=== PATIENT | female | born 1955 | race Caucasian/White ===

== ENCOUNTER 2020-11-22 14:06 | Emergency (ER) | payer OTHER ==
[~2020-11-22 14:06] MED LIST: ACETAMINOPHEN500 MG PO; ALDACTONE50 MG PO; CALCIUM PLUS M1 EAC1 PO; CARNITOR330 MG PO; CEFDINIR300 M1 PO; CEFDINIR300 MG PO; DOK100 MG PO; INDERAL LA160 MG PO; JANUVIA50 MG PO; LACTINEX1 EACH PO; LACTULOSE10 G/15 ML PO; LACTULOSE20 GM/30 M PO; LASIX20 MG PO; MAG-OXIDE 400M400 MG PO; MORPHINE SULFAT15 MG PO; OXY-IR 5MG5 MG PO; PANTOPRAZOLE SO40 MG PO; PAXIL20 MG PO; PERCOCET 5-3251 EACH PO; PHENERGAN25 M1 PO; REQUIP1 MG PO; VANCOMYCIN HCL1 GM PO; XIFAXAN550 MG PO; ZINC50 MG PO; ZOFRAN4 MG SL
[2020-11-22 15:26] LABS: BASOPHIL 0.3 % (0-2); EOSINOPHIL 1.2 % (0-7); HCT 45.1 % (37.0-47.0); MCH 30.7 pg (25.0-31.0); MCHC 33.3 g/dL (32.0-36.0); MCV 92.4 fL (78.0-100.0); MONOCYTE 9.7 % (0-12); MPV 11.5 fL (6.0-9.5); NEUTROPHIL 78.5 % (41-80); NRBC 0; RBC 4.88 M/uL (4.20-5.40); RDW 14.7 % (11.5-14.0); WBC 3.3 K/uL (4.0-10.5)
[2020-11-22 15:32] LABS: PLT 73 K/uL (150-400)
[2020-11-22 15:42] LABS: ALBUMIN 3.5 g/dL (3.4-5.0); BILIRUBIN - TOTAL 4.2 mg/dL (0.2-1.0); CREATININE 0.58 mg/dL (0.51-0.95); GLOBULIN (CALCULATION) 3.3 g/dL; POTASSIUM 4.5 mmol/L (3.5-5.1); TOTAL PROTEIN 6.8 g/dL (6.4-8.2)
[2020-11-22 15:52] LABS: AMYLASE 58 U/L (25-115); LIPASE 220 U/L (73-393)
[2020-11-22 19:02] LABS: BILIRUBIN NEGATIVE (NEGATIVE); BLOOD NEGATIVE Ery/uL (NEGATIVE); CLARITY CLEAR (CLEAR); COLOR YELLOW (YELLOW); GLUCOSE (U) 2+ mg/dL (NORMAL); LEUKOCYTES NEGATIVE Leu/uL (NEGATIVE); NITRITE NEGATIVE (NEGATIVE); PROTEIN TRACE (LOW) mg/dL (NEGATIVE); SPECIFIC GRAVITY >=1.030 (1.001-1.030); UROBILINOGEN 0.2 mg/dL (0.2-1.0)
[2020-11-22 19:10] LABS: BACTERIA TRACE; MUCOUS LARGE; SQUAMOUS EPITHELIAL CELLS RARE; URINARY RBC RARE; URINARY WBC RARE
[2020-11-22 19:59] LABS: AMPHETAMINES NEGATIVE (NEGATIVE); BARBITURATES NEGATIVE (NEGATIVE); ECSTASY (MDMA) NEGATIVE (NEGATIVE); MARIJUANA (THC) NEGATIVE (NEGATIVE); METHADONE NEGATIVE (NEGATIVE); OPIATES NEGATIVE (NEGATIVE); OXYCODONE NEGATIVE (NEGATIVE)
== END 2020-11-23 00:15 | disposition other institution (70) ==
LOC: FER 14:06
PROVIDERS: Nurse Practitioner Family
DX: G93.41 Metabolic encephalopathy (principal); I10 Essential (primary) hypertension; R29.703 NIHSS score 3; Z87.891 Personal history of nicotine dependence
CPT/HCPCS: 36415; 70450; 71045; 72125; 80053; 80305; 81001; 82009; 82140; 82150; 82550; 83690; 84443; 85025; 86593; G0480; J7030

== ENCOUNTER 2021-10-25 12:57 | Inpatient (IN) | payer MEDICARE ==
[~2021-10-25] VITALS: Ht 167.6 cm; Wt 73.9 kg
[2021-10-25 14:13] LABS: AMPHETAMINES NEGATIVE (NEGATIVE); BARBITURATES NEGATIVE (NEGATIVE); ECSTASY (MDMA) NEGATIVE (NEGATIVE); MARIJUANA (THC) NEGATIVE (NEGATIVE); METHADONE NEGATIVE (NEGATIVE); OPIATES NEGATIVE (NEGATIVE); OXYCODONE NEGATIVE (NEGATIVE)
[2021-10-25 14:14] LABS: BILIRUBIN NEGATIVE (NEGATIVE); BLOOD NEGATIVE Ery/uL (NEGATIVE); CLARITY CLEAR (CLEAR); COLOR YELLOW (YELLOW); GLUCOSE (U) 3+ mg/dL (NORMAL); LEUKOCYTES NEGATIVE Leu/uL (NEGATIVE); NITRITE NEGATIVE (NEGATIVE); PROTEIN TRACE (LOW) mg/dL (NEGATIVE); SPECIFIC GRAVITY 1.025 (1.001-1.030)
[2021-10-25 14:26] LABS: BACTERIA TRACE; MUCOUS MODERATE
[2021-10-25 14:27] LABS: URIC ACID CRYSTALS MODERATE
[2021-10-25 14:33] LABS: BASOPHIL 0.3 % (0-2); EOSINOPHIL 0.3 % (0-7); HCT 45.7 % (37.0-47.0); LYMPHOCYTE 7.9 % (15-48); MCH 33.8 pg (25.0-31.0); MCV 96.6 fL (78.0-100.0); MONOCYTE 14.4 % (0-12); MPV 10.4 fL (6.0-9.5); NEUTROPHIL 76.6 % (41-80); NRBC 0; PLT 48 K/uL (150-400); RBC 4.73 M/uL (4.20-5.40); RDW 14.3 % (11.5-14.0); WBC 3.7 K/uL (4.0-10.5)
[2021-10-25 15:21] LABS: ALBUMIN 3.7 g/dL (3.4-5.0); BILIRUBIN - TOTAL 2.6 mg/dL (0.2-1.0); BUN/CREAT RATIO (CALC) 59.6 RATIO; CREATININE 0.47 mg/dL (0.51-0.95); GLOBULIN (CALCULATION) 3.3 g/dL; POTASSIUM 3.8 mmol/L (3.5-5.1)
[2021-10-25] MEDS ORDERED: LACTULOSE10 G/15 ML PO (22:18)
[2021-10-25] MEDS ORDERED: ATORVASTATIN CA20 MG PO (22:19)
[2021-10-25] MEDS ORDERED: ZINC50 M2 PO (22:19)
[2021-10-25] MEDS ORDERED: XIFAXAN550 M1 PO (22:20)
[2021-10-25] MEDS ORDERED: PAXIL20 MG PO (22:21)
[2021-10-25] MEDS ORDERED: POTASSIUM20 MEQ/11 PO (22:21)
[2021-10-25] MEDS ORDERED: MAG-OXIDE 400M400 MG PO (22:22)
[2021-10-25] MEDS ORDERED: ALDACTONE50 MG PO (22:23)
[2021-10-25] MEDS ORDERED: FUROSEMIDE20 MG PO (22:24)
[2021-10-26 06:48] LABS: BASOPHIL 0.6 % (0-2); EOSINOPHIL 2.4 % (0-7); HCT 32.1 % (37.0-47.0); LYMPHOCYTE 24.8 % (15-48); MCH 34.2 pg (25.0-31.0); MONOCYTE 12.1 % (0-12); MPV 10.9 fL (6.0-9.5); NEUTROPHIL 60.1 % (41-80); NRBC 0; RBC 3.19 M/uL (4.20-5.40); RDW 14.9 % (11.5-14.0)
[2021-10-26 06:51] LABS: WBC 1.7 K/uL (4.0-10.5)
[2021-10-26 07:01] LABS: HGB 10.9 g/dl (12.5-16.0)
[2021-10-26 07:10] LABS: BILIRUBIN - TOTAL 2.7 mg/dL (0.2-1.0); BUN/CREAT RATIO (CALC) 43.1 RATIO; CREATININE 0.51 mg/dL (0.51-0.95); GLOBULIN (CALCULATION) 2.1 g/dL; MAGNESIUM 2.1 mg/dL (1.8-2.4); POTASSIUM 3.9 mmol/L (3.5-5.1); TOTAL PROTEIN 5.1 g/dL (6.4-8.2)
[2021-10-26 07:11] LABS: MCV 100.6 fL (78.0-100.0)
[2021-10-26 07:19] LABS: PLT 32 K/uL (150-400)
[2021-10-26 16:14] LABS: PHOSPHORUS 3.2 mg/dL (2.6-4.7)
[2021-10-27 06:26] LABS: BASOPHIL 1.2 % (0-2); EOSINOPHIL 3.1 % (0-7); LYMPHOCYTE 20.9 % (15-48); MCH 33.7 pg (25.0-31.0); MCHC 34.2 g/dL (32.0-36.0); MCV 98.4 fL (78.0-100.0); MONOCYTE 13.5 % (0-12); MPV 11.5 fL (6.0-9.5); NEUTROPHIL 61.3 % (41-80); NRBC 0; RBC 3.86 M/uL (4.20-5.40); RDW 14.6 % (11.5-14.0)
[2021-10-27 06:43] LABS: BUN/CREAT RATIO (CALC) 23.5 RATIO; CREATININE 0.51 mg/dL (0.51-0.95); POTASSIUM 3.5 mmol/L (3.5-5.1)
[2021-10-27 07:33] LABS: PLT 33 K/uL (150-400); WBC 1.6 K/uL (4.0-10.5)
--- NOTE | 2021-10-28 01:13 | NUR ---
PT REFUSING FLUIDS AT THIS TIME. STATES NOT GETTING ANY SLEEP DUE TO PEEING ALL THE TIME FROM FLUIDS. WILL LET MD KNOW.
[2021-10-28 06:56] LABS: BASOPHIL 0.6 % (0-2); EOSINOPHIL 3.6 % (0-7); HCT 38.8 % (37.0-47.0); HGB 13.5 g/dl (12.5-16.0); LYMPHOCYTE 14.5 % (15-48); MCH 34.2 pg (25.0-31.0); MCHC 34.8 g/dL (32.0-36.0); MCV 98.2 fL (78.0-100.0); MONOCYTE 13.3 % (0-12); MPV 10.3 fL (6.0-9.5); NRBC 0; PLT 38 K/uL (150-400); RBC 3.95 M/uL (4.20-5.40)
[2021-10-28 07:11] LABS: CREATININE 0.5 mg/dL (0.51-0.95); POTASSIUM 3.7 mmol/L (3.5-5.1)
[2021-10-28 07:25] LABS: WBC 1.7 K/uL (4.0-10.5)
--- NOTE | 2021-10-28 14:34 | NUR ---
PT IS CURRENT WITH [facility] . NOTIFIED ISAEL W/JAYY OF PT. D/C HOME THIS DATE. ALSO, REQUESTED THAT [facility] SET PT UP WITH [facility]. ISAEL ADVISED THAT THEY WILL GET THE PT SET UP WITH THE [facility]. ADVISED MANISHA FELTON OF ABOVE INFORMATION.
== END 2021-10-28 14:33 | disposition home health service (06) | DRG 441 ==
LOC: FER 12:57 → FMS 20:55
PROVIDERS: Emergency Medicine; Internal Medicine; Nurse Practitioner; ADMIT Allergy & Immunology Allergy
DX: K72.00 Acute and subacute hepatic failure without coma (principal); R65.11 Systemic inflammatory response syndrome (SIRS) of non-infectious origin with acute organ dysfunction; M62.82 Rhabdomyolysis; D61.818 Other pancytopenia; E87.0 Hyperosmolality and hypernatremia; Z20.822 Contact with and (suspected) exposure to COVID-19; K74.60 Unspecified cirrhosis of liver; I10 Essential (primary) hypertension; E11.9 Type 2 diabetes mellitus without complications; M19.90 Unspecified osteoarthritis, unspecified site; F32.A Depression, unspecified; G25.81 Restless legs syndrome; Z90.710 Acquired absence of both cervix and uterus; Z90.49 Acquired absence of other specified parts of digestive tract; Z98.890 Other specified postprocedural states; Z85.3 Personal history of malignant neoplasm of breast; Z85.05 Personal history of malignant neoplasm of liver; Z87.891 Personal history of nicotine dependence; Z88.5 Allergy status to narcotic agent
CPT/HCPCS: 36415; 70450; 71045; 72125; 72128; 72131; 72170; 80048; 80053; 80305; 81001; 82140; 82550; 82553; 83605; 83735; 83874; 84100; 84132; 84295; 84484; 85025; 97162; 97166; 97530; 97530-GP; 97535; G0378; G0480; J1170; J1885; J3480; J7030; U0002

== ENCOUNTER 2021-11-08 06:38 | Emergency (ER) | payer MEDICARE ==
[~2021-11-08 06:38] MED LIST changes: +ATORVASTATIN CA20 MG PO; +FUROSEMIDE20 MG PO; +POTASSIUM20 MEQ/11 PO; +XIFAXAN550 M1 PO; +ZINC50 M2 PO
[2021-11-08 07:48] LABS: BASOPHIL 0.5 % (0-2); EOSINOPHIL 2.5 % (0-7); HGB 14.1 g/dl (12.5-16.0); LYMPHOCYTE 9.9 % (15-48); MCH 34.5 pg (25.0-31.0); MCHC 34.4 g/dL (32.0-36.0); MCV 100.2 fL (78.0-100.0); MONOCYTE 10.9 % (0-12); MPV 10.3 fL (6.0-9.5); NEUTROPHIL 75.7 % (41-80); NRBC 0; RBC 4.09 M/uL (4.20-5.40); RDW 14.8 % (11.5-14.0)
[2021-11-08 08:01] LABS: CORONAVIRUS 2019 SARS-COV-2 NEGATIVE (NEGATIVE); INFLUENZA A NAA NEGATIVE (NEGATIVE)
[2021-11-08 08:18] LABS: ALBUMIN 3.2 g/dL (3.4-5.0); BILIRUBIN - TOTAL 2.7 mg/dL (0.2-1.0); BUN/CREAT RATIO (CALC) 21.4 RATIO; CREATININE 0.56 mg/dL (0.51-0.95); GLOBULIN (CALCULATION) 2.9 g/dL; POTASSIUM 3.5 mmol/L (3.5-5.1); TOTAL PROTEIN 6.1 g/dL (6.4-8.2)
[2021-11-08 08:26] LABS: PLT 47 K/uL (150-400)
== END 2021-11-08 09:24 | disposition home or self-care (01) ==
LOC: FER 06:38
PROVIDERS: Emergency Medicine
DX: R19.7 Diarrhea, unspecified (principal); K72.90 Hepatic failure, unspecified without coma; E11.9 Type 2 diabetes mellitus without complications; Z20.822 Contact with and (suspected) exposure to COVID-19; Z88.5 Allergy status to narcotic agent; Z79.4 Long term (current) use of insulin
CPT/HCPCS: 36415; 74022; 80053; 82140; 83690; 84145; 84484; 85025; J7030; Q0162; U0002

== ENCOUNTER 2021-11-11 04:28 | Inpatient (IN) | payer MEDICARE ==
[~2021-11-11] VITALS: Ht 167.6 cm; Wt 74.4 kg
[2021-11-11 06:17] LABS: BASOPHIL 0.5 % (0-2); EOSINOPHIL 4.2 % (0-7); HCT 37.2 % (37.0-47.0); HGB 12.8 g/dl (12.5-16.0); LYMPHOCYTE 11.2 % (15-48); MCH 34.3 pg (25.0-31.0); MCHC 34.4 g/dL (32.0-36.0); MCV 99.7 fL (78.0-100.0); MONOCYTE 13.1 % (0-12); MPV 11.9 fL (6.0-9.5); NEUTROPHIL 70.5 % (41-80); NRBC 0; PLT 58 K/uL (150-400); RBC 3.73 M/uL (4.20-5.40)
[2021-11-11 06:22] LABS: INR 1.39 (0.9-1.2); PROTHROMBIN TIME 16.4 SECONDS (11.8-13.4); PTT 28.1 SECONDS (24.4-34.7)
[2021-11-11 06:29] LABS: WBC 2.1 K/uL (4.0-10.5)
[2021-11-11 07:06] LABS: ALBUMIN 2.8 g/dL (3.4-5.0); BILIRUBIN - TOTAL 2.8 mg/dL (0.2-1.0); BUN/CREAT RATIO (CALC) 17.6 RATIO; CREATININE 0.51 mg/dL (0.51-0.95); GLOBULIN (CALCULATION) 3.2 g/dL; POTASSIUM 3.2 mmol/L (3.5-5.1)
[2021-11-11 08:20] LABS: BILIRUBIN NEGATIVE (NEGATIVE); BLOOD TRACE-INTACT Ery/uL (NEGATIVE); CLARITY CLEAR (CLEAR); COLOR YELLOW (YELLOW); GLUCOSE (U) NORMAL (NORMAL); LEUKOCYTES NEGATIVE Leu/uL (NEGATIVE); NITRITE NEGATIVE (NEGATIVE); PROTEIN NEGATIVE (NEGATIVE); UROBILINOGEN 0.2 mg/dL (0.2-1.0)
[2021-11-11 08:28] LABS: BACTERIA TRACE; URINARY RBC RARE; URINARY WBC RARE
[2021-11-11] MEDS ORDERED: MAG-OXIDE 400M400 MG PO (10:43)
[2021-11-11] MEDS ORDERED: REQUIP1 MG PO (10:44)
[2021-11-11] MEDS ORDERED: ZINC50 MG PO (10:45)
[2021-11-11] MEDS ORDERED: XIFAXAN550 MG PO (10:46)
[2021-11-11] MEDS ORDERED: TRESIBA100 UNIT/1 SC (10:47)
[2021-11-11] MEDS ORDERED: CARNITOR330 MG PO (10:48)
[2021-11-12 06:56] LABS: EOSINOPHIL 6.9 % (0-7); HCT 36.3 % (37.0-47.0); HGB 12.2 g/dl (12.5-16.0); LYMPHOCYTE 21.6 % (15-48); MCH 33.8 pg (25.0-31.0); MCHC 33.6 g/dL (32.0-36.0); MCV 100.6 fL (78.0-100.0); MONOCYTE 12.7 % (0-12); NEUTROPHIL 57.8 % (41-80); NRBC 0; RBC 3.61 M/uL (4.20-5.40); RDW 14.6 % (11.5-14.0)
[2021-11-12 07:03] LABS: PLT 41 K/uL (150-400)
[2021-11-12 07:16] LABS: ALBUMIN 2.5 g/dL (3.4-5.0); ALKALINE PHOSHATASE 77 U/L (46-116); ALT 46 U/L (14-59); AST 37 U/L (15-37); BILIRUBIN - TOTAL 3.2 mg/dL (0.2-1.0); BUN 5 mg/dL (7-18); BUN/CREAT RATIO (CALC) 8.8 RATIO; C-REACTIVE PROTEIN <0.20 mg/dL (<=0.90); CHLORIDE 108 mmol/L (98-107); CO2 (BICARBONATE) 24 mmol/L (21-32); CREATININE 0.57 mg/dL (0.51-0.95); GLOBULIN (CALCULATION) 2.4 g/dL; GLUCOSE 89 mg/dL (74-106); LIPASE 228 U/L (73-393); MAGNESIUM 1.8 mg/dL (1.8-2.4); PHOSPHORUS 3.3 mg/dL (2.6-4.7); POTASSIUM 3.2 mmol/L (3.5-5.1); TOTAL PROTEIN 4.9 g/dL (6.4-8.2)
[2021-11-13 07:02] LABS: BASOPHIL 0.4 % (0-2); EOSINOPHIL 1.8 % (0-7); HCT 35.4 % (37.0-47.0); HGB 11.9 g/dl (12.5-16.0); LYMPHOCYTE 8.1 % (15-48); MCHC 33.6 g/dL (32.0-36.0); MCV 101.1 fL (78.0-100.0); MONOCYTE 8.1 % (0-12); MPV 10.7 fL (6.0-9.5); NEUTROPHIL 80.9 % (41-80); NRBC 0; RDW 14.5 % (11.5-14.0)
[2021-11-13 07:05] LABS: PLT 42 K/uL (150-400); WBC 2.9 K/uL (4.0-10.5)
[2021-11-13 07:40] LABS: ALBUMIN 2.5 g/dL (3.4-5.0); BILIRUBIN - TOTAL 2.8 mg/dL (0.2-1.0); BUN/CREAT RATIO (CALC) 7.7 RATIO; C-REACTIVE PROTEIN 0.3 mg/dL (<=0.90); CREATININE 0.65 mg/dL (0.51-0.95); GLOBULIN (CALCULATION) 2.4 g/dL; MAGNESIUM 1.7 mg/dL (1.8-2.4); POTASSIUM 3.1 mmol/L (3.5-5.1); TOTAL PROTEIN 4.9 g/dL (6.4-8.2)
[2021-11-14 06:47] LABS: BASOPHIL 0.4 % (0-2); HCT 34.6 % (37.0-47.0); HGB 11.7 g/dl (12.5-16.0); LYMPHOCYTE 14.5 % (15-48); MCH 34.1 pg (25.0-31.0); MCHC 33.8 g/dL (32.0-36.0); MCV 100.9 fL (78.0-100.0); MONOCYTE 8.6 % (0-12); MPV 10.5 fL (6.0-9.5); NEUTROPHIL 73.3 % (41-80); NRBC 0; PLT 33 K/uL (150-400); RBC 3.43 M/uL (4.20-5.40); RDW 14.6 % (11.5-14.0)
[2021-11-14 06:49] LABS: WBC 2.6 K/uL (4.0-10.5)
[2021-11-14 07:10] LABS: ALBUMIN 2.4 g/dL (3.4-5.0); BUN/CREAT RATIO (CALC) 9.7 RATIO; CREATININE 0.62 mg/dL (0.51-0.95); GLOBULIN (CALCULATION) 2.5 g/dL; MAGNESIUM 1.7 mg/dL (1.8-2.4); POTASSIUM 3.6 mmol/L (3.5-5.1); TOTAL PROTEIN 4.9 g/dL (6.4-8.2)
[2021-11-14] MEDS ORDERED: AMOX TR-K CLV1 EAC4 PO (17:02)
[2021-11-14] MEDS ORDERED: LACTINEX1 EACH PO (17:02)
== END 2021-11-14 17:35 | disposition home health service (06) | DRG 392 ==
LOC: FER 04:28 → FMS 08:46
PROVIDERS: Internal Medicine; ADMIT Internal Medicine
PROC: 8E0ZXY6 Isolation (ICD-10-PCS; principal; 2021-11-11)
DX: K52.9 Noninfective gastroenteritis and colitis, unspecified (principal); D84.9 Immunodeficiency, unspecified; K70.31 Alcoholic cirrhosis of liver with ascites; Z20.822 Contact with and (suspected) exposure to COVID-19; K70.11 Alcoholic hepatitis with ascites; E87.6 Hypokalemia; D69.6 Thrombocytopenia, unspecified; E83.42 Hypomagnesemia; E11.9 Type 2 diabetes mellitus without complications; I10 Essential (primary) hypertension; E78.5 Hyperlipidemia, unspecified; F32.A Depression, unspecified; G25.81 Restless legs syndrome; Z85.3 Personal history of malignant neoplasm of breast; Z85.05 Personal history of malignant neoplasm of liver; Z90.710 Acquired absence of both cervix and uterus; Z90.49 Acquired absence of other specified parts of digestive tract; Z98.890 Other specified postprocedural states; Z88.5 Allergy status to narcotic agent; Z88.6 Allergy status to analgesic agent; Z87.891 Personal history of nicotine dependence; Z79.899 Other long term (current) drug therapy
CPT/HCPCS: 36415; 74022; 80053; 81001; 82140; 83605; 83690; 83735; 83880; 84100; 84145; 84484; 85025; 85610; 85730; 86140; 87045; 87046; 87205; 87449; 93005; 97162; 97166; 97530-GP; 97535; J1447; J2543; J3475; J7030; Q0162; U0002

== ENCOUNTER 2022-02-14 08:58 | Inpatient (IN) | payer MEDICARE, OTHER ==
[~2022-02-14] VITALS: Ht 167.6 cm; Wt 74.0 kg
[~2022-02-14 08:58] MED LIST changes: +AMOX TR-K CLV1 EAC4 PO; +TRESIBA100 UNIT/1 SC
[2022-02-14 11:19] LABS: BASOPHIL 1.1 % (0-2); EOSINOPHIL 2.6 % (0-7); HCT 43.5 % (37.0-47.0); HGB 14.8 g/dl (12.5-16.0); LYMPHOCYTE 13.2 % (15-48); MCH 32.5 pg (25.0-31.0); MCV 95.6 fL (78.0-100.0); MONOCYTE 12.2 % (0-12); MPV 11.1 fL (6.0-9.5); NEUTROPHIL 70.9 % (41-80); NRBC 0; RBC 4.55 M/uL (4.20-5.40); RDW 14.3 % (11.5-14.0)
[2022-02-14 11:29] LABS: PLT 52 K/uL (150-400); WBC 1.9 K/uL (4.0-10.5)
[2022-02-14 11:31] LABS: IRON % SATURATION 48.3 %SAT (20-50)
[2022-02-14 11:36] LABS: INR 1.37 (0.9-1.2); PROTHROMBIN TIME 16.2 SECONDS (11.8-13.4); PTT 33.9 SECONDS (24.4-34.7)
[2022-02-14 11:42] LABS: ALBUMIN 3.2 g/dL (3.4-5.0); BUN/CREAT RATIO (CALC) 46.7 RATIO; CREATININE 0.45 mg/dL (0.51-0.95); GLOBULIN (CALCULATION) 3.5 g/dL; POTASSIUM 3.8 mmol/L (3.5-5.1); TOTAL PROTEIN 6.7 g/dL (6.4-8.2)
[2022-02-14 12:00] LABS: BILIRUBIN NEGATIVE (NEGATIVE); BLOOD NEGATIVE Ery/uL (NEGATIVE); CLARITY CLEAR (CLEAR); COLOR YELLOW (YELLOW); GLUCOSE (U) 3+ mg/dL (NORMAL); LEUKOCYTES NEGATIVE Leu/uL (NEGATIVE); NITRITE NEGATIVE (NEGATIVE); PROTEIN NEGATIVE (NEGATIVE)
[2022-02-14 12:02] LABS: LACTIC ACID 1.9 mmol/L (0.4-1.9)
[2022-02-14] MEDS ORDERED: MAG-OXIDE 400M400 MG PO (17:38)
[2022-02-14] MEDS ORDERED: PAXIL20 MG PO (17:40)
[2022-02-14] MEDS ORDERED: LACTULOSE10 G/15 ML PR (17:42)
[2022-02-15 07:26] LABS: BASOPHIL 0.7 % (0-2); EOSINOPHIL 6.2 % (0-7); HCT 39.8 % (37.0-47.0); HGB 13.4 g/dl (12.5-16.0); LYMPHOCYTE 25.5 % (15-48); MCH 32.5 pg (25.0-31.0); MCHC 33.7 g/dL (32.0-36.0); MCV 96.6 fL (78.0-100.0); MONOCYTE 15.2 % (0-12); MPV 10.4 fL (6.0-9.5); NEUTROPHIL 52.4 % (41-80); PLT 49 K/uL (150-400); RBC 4.12 M/uL (4.20-5.40); RDW 14.5 % (11.5-14.0)
[2022-02-15 07:38] LABS: WBC 1.5 K/uL (4.0-10.5)
[2022-02-15 07:41] LABS: MAGNESIUM 2.2 mg/dL (1.8-2.4); PHOSPHORUS 3.8 mg/dL (2.6-4.7)
[2022-02-16 06:57] LABS: BASOPHIL 0.8 % (0-2); EOSINOPHIL 3.2 % (0-7); HGB 13.3 g/dl (12.5-16.0); MCH 32.5 pg (25.0-31.0); MCHC 34.1 g/dL (32.0-36.0); MCV 95.4 fL (78.0-100.0); MONOCYTE 15.3 % (0-12); MPV 10.3 fL (6.0-9.5); NEUTROPHIL 50.9 % (41-80); NRBC 0; PLT 44 K/uL (150-400); RBC 4.09 M/uL (4.20-5.40); RDW 14.1 % (11.5-14.0)
[2022-02-16 07:19] LABS: BUN/CREAT RATIO (CALC) 23.5 RATIO; CREATININE 0.51 mg/dL (0.51-0.95)
[2022-02-16 08:36] LABS: WBC 1.2 K/uL (4.0-10.5)
[2022-02-17 06:46] LABS: BASOPHIL 0.5 % (0-2); EOSINOPHIL 1.6 % (0-7); HGB 13.6 g/dl (12.5-16.0); LYMPHOCYTE 8.5 % (15-48); MCH 32.9 pg (25.0-31.0); MCHC 33.2 g/dL (32.0-36.0); MCV 99.3 fL (78.0-100.0); MONOCYTE 7.1 % (0-12); MPV 11.7 fL (6.0-9.5); NEUTROPHIL 81.8 % (41-80); NRBC 0; RBC 4.13 M/uL (4.20-5.40); RDW 14.6 % (11.5-14.0)
[2022-02-17 07:00] LABS: BUN/CREAT RATIO (CALC) 19.7 RATIO; CREATININE 0.66 mg/dL (0.51-0.95); POTASSIUM 4.9 mmol/L (3.5-5.1)
[2022-02-17 07:02] LABS: WBC 3.6 K/uL (4.0-10.5)
[2022-02-17 07:05] LABS: PLT 38 K/uL (150-400)
[2022-02-17] MEDS ORDERED: AMOX TR-K CLV1 EAC4 PO (15:25)
--- NOTE | 2022-02-17 16:07 | NUR ---
PT IS CURRENT WITH INTREPID. TC TO INTREPID OFFICE AND ADVISED OF PT. D/C HOME THIS DATE.
== END 2022-02-17 15:58 | disposition home health service (06) | DRG 433 ==
LOC: FER 08:58 → FMS 15:28
PROVIDERS: Emergency Medicine; ADMIT Internal Medicine
PROC: 8E0ZXY6 Isolation (ICD-10-PCS; principal; 2022-02-14)
DX: K70.40 Alcoholic hepatic failure without coma (principal); A09 Infectious gastroenteritis and colitis, unspecified; D84.9 Immunodeficiency, unspecified; K76.6 Portal hypertension; K70.31 Alcoholic cirrhosis of liver with ascites; Z20.822 Contact with and (suspected) exposure to COVID-19; D69.6 Thrombocytopenia, unspecified; N83.8 Other noninflammatory disorders of ovary, fallopian tube and broad ligament; R00.1 Bradycardia, unspecified; E11.9 Type 2 diabetes mellitus without complications; I10 Essential (primary) hypertension; G25.81 Restless legs syndrome; F32.A Depression, unspecified; I07.1 Rheumatic tricuspid insufficiency; M19.90 Unspecified osteoarthritis, unspecified site; Z85.05 Personal history of malignant neoplasm of liver; Z90.81 Acquired absence of spleen; Z85.3 Personal history of malignant neoplasm of breast; Z90.710 Acquired absence of both cervix and uterus; Z90.49 Acquired absence of other specified parts of digestive tract; Z87.891 Personal history of nicotine dependence; Z88.5 Allergy status to narcotic agent; Z88.6 Allergy status to analgesic agent; Z79.899 Other long term (current) drug therapy
CPT/HCPCS: 36415; 71260; 80048; 80053; 81003; 82140; 82728; 83540; 83550; 83605; 83735; 83880; 84100; 84145; 84439; 84443; 84484; 85025; 85610; 85730; 87045; 87046; 87205; 87449; 93005; 94010; J0780; J1447; J1650; J1885; J2543; Q9967; U0002

== ENCOUNTER 2022-03-13 23:29 | Day surgery (SDCO) | payer MEDICARE, OTHER ==
[~2022-03-13] VITALS: Ht 167.6 cm; Wt 76.8 kg
[~2022-03-13 23:29] MED LIST changes: +LACTULOSE10 G/15 ML PR
[2022-03-14 00:24] LABS: BASOPHIL 0.7 % (0-2); EOSINOPHIL 2.6 % (0-7); HCT 37.4 % (37.0-47.0); LYMPHOCYTE 19.7 % (15-48); MCH 32.7 pg (25.0-31.0); MCHC 34.8 g/dL (32.0-36.0); MCV 94.2 fL (78.0-100.0); MONOCYTE 18.4 % (0-12); MPV 10.6 fL (6.0-9.5); NEUTROPHIL 58.6 % (41-80); NRBC 0; RBC 3.97 M/uL (4.20-5.40); RDW 14.1 % (11.5-14.0)
[2022-03-14 00:36] LABS: INR 1.46 (0.9-1.2); PROTHROMBIN TIME 17.3 SECONDS (11.9-13.9)
[2022-03-14 00:40] LABS: PLT 32 K/uL (150-400)
[2022-03-14 00:50] LABS: LACTIC ACID 1.1 mmol/L (0.4-1.9)
[2022-03-14 00:52] LABS: BILIRUBIN NEGATIVE (NEGATIVE); BLOOD NEGATIVE Ery/uL (NEGATIVE); CLARITY CLEAR (CLEAR); COLOR YELLOW (YELLOW); GLUCOSE (U) 3+ mg/dL (NORMAL); LEUKOCYTES NEGATIVE Leu/uL (NEGATIVE); NITRITE NEGATIVE (NEGATIVE); PROTEIN NEGATIVE (NEGATIVE)
[2022-03-14 00:54] LABS: AMPHETAMINES NEGATIVE (NEGATIVE); BARBITURATES NEGATIVE (NEGATIVE); ECSTASY (MDMA) NEGATIVE (NEGATIVE); MARIJUANA (THC) NEGATIVE (NEGATIVE); METHADONE NEGATIVE (NEGATIVE); OPIATES NEGATIVE (NEGATIVE); OXYCODONE NEGATIVE (NEGATIVE)
[2022-03-14 00:56] LABS: ACETAMINOPHEN (TYLENOL) < 2.0 ug/mL (10.0-30.0); ALKALINE PHOSHATASE 76 U/L (46-116); ALT 58 U/L (14-59); AST 50 U/L (15-37); BILIRUBIN - TOTAL 2.2 mg/dL (0.2-1.0); BUN 21 mg/dL (7-18); BUN/CREAT RATIO (CALC) 46.7 RATIO; CHLORIDE 102 mmol/L (98-107); CO2 (BICARBONATE) 24 mmol/L (21-32); CREATININE 0.45 mg/dL (0.51-0.95); GLOBULIN (CALCULATION) 2.8 g/dL; GLUCOSE 196 mg/dL (74-106); MAGNESIUM 1.9 mg/dL (1.8-2.4); POTASSIUM 3.4 mmol/L (3.5-5.1); TOTAL PROTEIN 5.8 g/dL (6.4-8.2)
[2022-03-14 00:58] LABS: WBC 1.5 K/uL (4.0-10.5)
[2022-03-14 01:02] LABS: CORONAVIRUS 2019 SARS-COV-2 NEGATIVE (NEGATIVE); INFLUENZA A NAA NEGATIVE (NEGATIVE)
[2022-03-14] MEDS ORDERED: CARNITOR330 MG PO (03:43)
[2022-03-15 07:00] LABS: BASOPHIL 0.5 % (0-2); EOSINOPHIL 4.3 % (0-7); HCT 40.9 % (37.0-47.0); HGB 13.8 g/dl (12.5-16.0); LYMPHOCYTE 15.9 % (15-48); MCH 32.1 pg (25.0-31.0); MCHC 33.7 g/dL (32.0-36.0); MCV 95.1 fL (78.0-100.0); MONOCYTE 13.9 % (0-12); MPV 10.7 fL (6.0-9.5); NEUTROPHIL 64.9 % (41-80); NRBC 0; RDW 14.3 % (11.5-14.0); WBC 2.1 K/uL (4.0-10.5)
[2022-03-15 07:02] LABS: ALBUMIN 2.9 g/dL (3.4-5.0); BILIRUBIN - TOTAL 2.5 mg/dL (0.2-1.0); BUN/CREAT RATIO (CALC) 28.6 RATIO; CREATININE 0.49 mg/dL (0.51-0.95); GLOBULIN (CALCULATION) 2.4 g/dL; POTASSIUM 3.8 mmol/L (3.5-5.1); TOTAL PROTEIN 5.3 g/dL (6.4-8.2)
[2022-03-15 07:33] LABS: PLT 39 K/uL (150-400)
--- NOTE | 2022-03-15 10:22 | NUR ---
03/15/22 Ms. Marcus lives alone. She is followed by [facility]. [facility] was informed of OBS status. Ms. Marcus has a rw, s. seat, and cane. - Ms. 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 - She hopes to move to [place] by Winter to be near her son. She has no other children.
[2022-03-15] MEDS ORDERED: LACTULOSE10 G/15 ML PR (13:46)
== END 2022-03-15 14:34 | disposition home health service (06) ==
LOC: FER 23:29 → FMS 03-14 02:41
PROVIDERS: Internal Medicine; Nurse Practitioner Acute Care; ADMIT Internal Medicine
DX: K72.00 Acute and subacute hepatic failure without coma (principal); E87.1 Hypo-osmolality and hyponatremia; E87.6 Hypokalemia; D72.819 Decreased white blood cell count, unspecified; D69.6 Thrombocytopenia, unspecified; E11.649 Type 2 diabetes mellitus with hypoglycemia without coma; K74.60 Unspecified cirrhosis of liver; D68.9 Coagulation defect, unspecified; I10 Essential (primary) hypertension; J98.59 Other diseases of mediastinum, not elsewhere classified; G25.81 Restless legs syndrome; J98.11 Atelectasis; I49.1 Atrial premature depolarization; E78.5 Hyperlipidemia, unspecified; R94.31 Abnormal electrocardiogram [ECG] [EKG]; N63.0 Unspecified lump in unspecified breast; K52.9 Noninfective gastroenteritis and colitis, unspecified; D50.9 Iron deficiency anemia, unspecified; Z88.6 Allergy status to analgesic agent; Z88.5 Allergy status to narcotic agent; Z20.822 Contact with and (suspected) exposure to COVID-19
CPT/HCPCS: 36415; 70450; 71250; 80053; 80305; 81003; 82140; 83036; 83605; 83735; 83880; 84145; 84484; 85025; 85610; 85730; 87040; 93005; 94010; 94760; 96365; 97162; 97166; 97530-GP; G0378; G0480; J2543; J7030; U0002

== ENCOUNTER 2022-03-17 14:27 | Emergency (ER) | payer MEDICARE, OTHER ==
[2022-03-17 16:39] LABS: BASOPHIL 0.4 % (0-2); EOSINOPHIL 2.1 % (0-7); HCT 35.7 % (37.0-47.0); HGB 12.3 g/dl (12.5-16.0); LYMPHOCYTE 15.8 % (15-48); MCH 32.8 pg (25.0-31.0); MCHC 34.5 g/dL (32.0-36.0); MCV 95.2 fL (78.0-100.0); MONOCYTE 12.4 % (0-12); MPV 11.4 fL (6.0-9.5); NEUTROPHIL 68.9 % (41-80); NRBC 0; RBC 3.75 M/uL (4.20-5.40); RDW 14.3 % (11.5-14.0); WBC 2.3 K/uL (4.0-10.5)
[2022-03-17 16:40] LABS: PLT 44 K/uL (150-400)
[2022-03-17 16:47] LABS: INR 1.41 (0.9-1.2); PROTHROMBIN TIME 16.8 SECONDS (11.9-13.9); PTT 33.6 SECONDS (24.9-34.6)
[2022-03-17 17:02] LABS: ALBUMIN 2.8 g/dL (3.4-5.0); CREATININE 0.5 mg/dL (0.51-0.95); GLOBULIN (CALCULATION) 2.7 g/dL; MAGNESIUM 2.1 mg/dL (1.8-2.4); POTASSIUM 3.4 mmol/L (3.5-5.1); TOTAL PROTEIN 5.5 g/dL (6.4-8.2)
[2022-03-17 20:26] LABS: BILIRUBIN NEGATIVE (NEGATIVE); BLOOD 1+ Ery/uL (NEGATIVE); CLARITY CLEAR (CLEAR); COLOR YELLOW (YELLOW); GLUCOSE (U) TRACE mg/dL (NORMAL); LEUKOCYTES TRACE Leu/uL (NEGATIVE); NITRITE NEGATIVE (NEGATIVE); PROTEIN TRACE (LOW) mg/dL (NEGATIVE)
[2022-03-17 20:38] LABS: BACTERIA 3+; MUCOUS MODERATE; URINARY WBC TNTC
[2022-03-17 20:39] LABS: AMORPHOUS URATES CRYSTALS MODERATE
== END 2022-03-17 21:25 | disposition home or self-care (01) ==
LOC: FER 14:27
PROVIDERS: Emergency Medicine
DX: K74.60 Unspecified cirrhosis of liver (principal); R53.1 Weakness; R10.9 Unspecified abdominal pain; Z88.5 Allergy status to narcotic agent; Z91.040 Latex allergy status
CPT/HCPCS: 36415; 80053; 81001; 82140; 83605; 83735; 84484; 85025; 85610; 85730; 87088; 93005; J3475; J7030; Q9967